=== PATIENT | male | born 1995 | race Caucasian/White ===

== ENCOUNTER 2019-08-16 09:54 | Emergency (ER) | payer BC ==
[2019-08-16 10:11] VITALS: BP 114/59
[2019-08-16 10:52] LABS: Influenza B Molecular POSITIVE (Negative)
--- NOTE | 2019-08-16 10:58 | ED ---
Complex/Multi-Sys Presentation - HPI Summary HPI Summary: 24-year-old white male presents with fever/chills/bodyaches 1 day associated with being exposed to family members in [place] who are sick with strep and other viral illnesses. also was exposed and are both here in urgent care to be checked for strep throat. - History Of Current Complaint Chief Complaint: UCGeneralIllness Time Seen by Provider: 08/16/19 10:17 Hx Obtained From: Patient Onset/Duration: Sudden Onset Timing: Constant Severity Currently: Moderate Severity Initially: Moderate - Allergies/Home Medications Allergies/Adverse Reactions: Allergies Allergy/AdvReac Type Severity Reaction Status Date / Time No Known Allergies Allergy Verified 08/16/19 10:11 PMH/Surg Hx/FS Hx/Imm Hx Previously Healthy: Yes - Surgical History Surgery Procedure, Year, and Place: wisdom teeth Infectious Disease History: No Infectious Disease History: Denies: Traveled Outside the [place] in Last 30 Days - Family History Known Family History: Positive: None - Social History Alcohol Use: Daily Substance Use Type: Reports: None Smoking Status (MU): Never Smoked Tobacco Review of Systems Constitutional: Negative Eyes: Negative Positive: Sore Throat Cardiovascular: Negative Positive: Shortness Of Breath Gastrointestinal: Negative Genitourinary: Negative Positive: Myalgia Skin: Negative Neurological: Negative Psychological: Normal All Other Systems Reviewed And Are Negative: Yes Physical Exam - Summary Physical Exam Summary: Vital Signs Reviewed: Yes Eye Exam: Normal Eyes: Positive: Conjunctiva Clear ENT: Positive: Mild pharyngeal erythema without exudates Neck: Positive: Supple Respiratory Exam: Normal Respiratory: Positive: Lungs clear, Normal breath sounds. Negative: Crackles, Rhonchi, Stridor, Wheezing Cardiovascular Exam: Normal, RRR Abdomen: NT/ND Musculoskeletal Exam: Normal Neurological Exam: Normal Psychological Exam: Normal Skin Exam: Normal Triage Information Reviewed: Yes Vital Signs On Initial Exam: Initial Vitals Temp Pulse Resp BP Pulse Ox 36.9 C 50 16 114/59 98 08/16/19 10:08 08/16/19 10:08 08/16/19 10:08 08/16/19 10:08 08/16/19 10:08 Diagnostics - Vital Signs Vital Signs Temp Pulse Resp BP Pulse Ox 08/16/19 10:08 36.9 C 50 16 114/59 98 - Laboratory Lab Results: Lab Results 01/05/20 Range/Units 10:22 Group A Strep Rapid Negative (Negative) Lab Statement: Any lab studies that have been ordered have been reviewed, and results considered in the medical decision making process. Complex Multi-Symp Course/Dx Assessment/Plan: Flu B positive - treatment with Tamiflu and naproxen - Diagnoses Provider Diagnoses: Systemic viral illness Discharge ED - Sign-Out/Discharge Documenting (check all that apply): Patient Departure All imaging exams completed and their final reports reviewed: No Studies - Discharge Plan Condition: Stable Disposition: HOME Prescriptions: Naproxen [Naproxen 500 mg tab] 500 mg PO BID 10 Days #20 tablet Oseltamivir CAP* [Tamiflu CAP*] 75 mg PO BID 5 Days #10 cap Patient Education Materials: Viral Syndrome (ED) - Billing Disposition and Condition Condition: STABLE Disposition: Home
== END 2019-08-16 11:15 | disposition home or self-care (01) ==
LOC: UCEAST 09:54
DX: B34.9 Viral infection, unspecified (principal)
CPT/HCPCS: 87651; 99202; G0463